=== PATIENT | female | born 1980 | race Asian ===

== ENCOUNTER → 2020-02-12 07:48 | Outpatient (CLI) | payer OTHER, SELFPAY ==
[2020-02-12 08:50] LABS: Add Manual Diff / Slide Review NO; Basophils Absolute Auto 0 /uL (0-100); Basophils Percent Auto 0.9 % (0-2); Eosinophils Absolute Auto 300 /uL (0-450); Eosinophils Percent Auto 5.8 % (2-4); Hemoglobin 14.4 g/dL (12.0-16.0); Lymphocytes Absolute Auto 1200 /uL (1100-4500); Lymphocytes Percent Auto 26.2 % (25-40); Mean Corpuscular HGB Conc 35.2 % (30-36); Mean Corpuscular Hemoglobin 31.9 PG (26-34); Mean Corpuscular Volume 90.6 fL (80-100); Monocytes Absolute Auto 300 /uL (0-900); Monocytes Percent Auto 6.7 % (3-14); Neutrophils Absolute Auto 2700 /uL (1500-7000); Neutrophils Percent Auto 60.4 % (50-75); Platelet Count 238 X10^3/uL (150-400); Red Blood Cell Count 4.53 X10^6/uL (4.0-5.2); White Blood Cell Count 4.4 X10^3/uL (4.5-11.0)
[2020-02-12 08:51] LABS: Appearance Urine UA CLEAR; Bilirubin Urine UA NEGATIVE (NEGATIVE); Color Urine UA YELLOW; Glucose Urine UA NEGATIVE (Negative); Ketones Urine UA NEGATIVE (NEGATIVE); Leukocyte Esterase Urine UA NEGATIVE (NEGATIVE); Nitrite Urine UA NEGATIVE (Negative); Occult Blood Urine UA TRACE-LYSED (Negative); Protein Urine UA NEGATIVE (Negative); Urobilinogen Urine UA 0.2 E.U./dL (0.2)
[2020-02-12 09:31] LABS: Alanine Aminotransferase 16 IU/L (<35); Albumin 4.5 g/dL (3.5-5.0); Albumin Globulin Ratio 1.4 (1.0-2.8); Alkaline Phosphatase 55 U/L (38-126); Aspartate Aminotransferase 23 IU/L (14-36); BUN Creatinine Ratio 17.7 (6-22); Bilirubin Total 2.6 mg/dL (0.2-1.3); Blood Urea Nitrogen 14 mg/dL (7-17); Calcium 8.9 mg/dL (8.4-10.2); Carbon Dioxide 31 mmol/L (22-32); Chloride 102 mmol/L (98-107); Cholesterol 148 mg/dL (140-199); Estimated Glomerular Filt Rate > 60.0 mL/min (>60); Globulin 3.3 g/dL (1.7-4.1); Glucose 106 mg/dL (70-100); HDL Cholesterol 41 mg/dL (40-60); HEMOLYSIS < 15 (0-50); LDL Cholesterol Calculated 92 mg/dL (<100); Sodium 138 mmol/L (137-145); Total Protein 7.8 g/dL (6.3-8.2); Triglycerides 74 mg/dL (35-150)
== END ==
PROVIDERS: PCP Registered Nurse; Referring Provider Registered Nurse; Visit Provider Registered Nurse
DX: Z00.00 Encounter for general adult medical examination without abnormal findings (principal); Z83.42 Family history of familial hypercholesterolemia
CPT/HCPCS: 36415; 80053; 80061; 81003; 85025

== ENCOUNTER → 2021-02-11 09:43 | Outpatient (CLI) | payer OTHER, SELFPAY ==
[2021-02-11 10:56] LABS: Alanine Aminotransferase 27 IU/L (<35); Albumin 4.5 g/dL (3.5-5.0); Albumin Globulin Ratio 1.5 (1.0-2.8); Alkaline Phosphatase 57 U/L (38-126); Aspartate Aminotransferase 25 IU/L (14-36); BUN Creatinine Ratio 17.5 (6-22); Bilirubin Total 1.9 mg/dL (0.2-1.3); Blood Urea Nitrogen 14 mg/dL (7-17); Calcium 9.3 mg/dL (8.4-10.2); Carbon Dioxide 29 mmol/L (22-32); Chloride 101 mmol/L (98-107); Estimated Glomerular Filt Rate > 60.0 mL/min (>60); Glucose 108 mg/dL (70-100); HEMOLYSIS < 15 (0-50); Sodium 139 mmol/L (137-145); Total Protein 7.5 g/dL (6.3-8.2)
== END ==
PROVIDERS: PCP Registered Nurse; Referring Provider Family Medicine; Visit Provider Family Medicine
DX: R17 Unspecified jaundice (principal)
CPT/HCPCS: 36415; 80053

== ENCOUNTER → 2024-02-22 11:50 | Outpatient (CLI) | payer OTHER, SELFPAY ==
--- NOTE | 2024-02-22 11:53 | DI.RAD.S_ITS ---
PROCEDURE: XR WRIST LT 2V INDICATIONS: Fracture of unspecified carpal bone, left wrist, initial enc TECHNIQUE: 2 views of the wrist were acquired. COMPARISON: None. FINDINGS: Bones: No acute fractures or dislocations. No suspicious bony lesions. Small ossification adjacent to the tip of the styloid process likely related to remote prior injury. Soft tissues: No suspicious soft tissue calcifications. IMPRESSION: No acute osseous abnormality. If there is continued clinical concern or persistent symptoms, repeat radiographs or cross-sectional imaging (e.g. CT, MRI) may be helpful for further evaluation. Approved by: Keith Kang M.D. on 02/22/2024 at 13:00
== END ==
PROVIDERS: Referring Provider Chiropractor; Visit Provider Chiropractor
DX: S62.102A Fracture of unspecified carpal bone, left wrist, initial encounter for closed fracture (principal); X58.XXXA Exposure to other specified factors, initial encounter
CPT/HCPCS: 73100

== ENCOUNTER → 2024-06-23 06:56 | Outpatient (CLI) | payer OTHER, SELFPAY ==
--- NOTE | 2024-06-23 07:10 | DI.ECHO.S_ITS ---
[facility]+ [facility] : : [address] : : [place] : : [id number] : : Phone: [phone] Echocardiogram Report + + :Name: RICCARDO DE LOS SANTOS Study Date: 06/23/2024 Height: 62 in : :[facility] ReadingLocation: Weight: 140 lb : : Gender: Female BSA: 1.6 m2 : :: 1980 Age: 43 yrs BP: 113/73 mmHg: :Reason For Study: HEART CONDITION : : Performed By: Dulce Beaver : + + Interpretation Summary Normal both left and right ventricle size and function. The ejection fraction is estimated to be 55-60%. No valvular abnormality. Procedure: A two-dimensional transthoracic echocardiogram with color flow and Doppler was performed. The study quality was technically adequate. There is no prior echocardiogram noted for this patient. The patient was in sinus bradycardia with heart rates between 57-63 bpm during the exam. Left Ventricle: The left ventricle is normal in size and wall thickness. The ejection fraction is estimated to be 55-60%. Left ventricular wall motion is normal. Right Ventricle: The right ventricle is normal in size and function. Atria: The left atrial size is normal. Right atrial size is normal. There is no Doppler evidence for an interatrial shunt. Mitral Valve: The mitral valve leaflets appear to open well. There is trace mitral regurgitation. Aortic Valve: The aortic valve is trileaflet. The aortic valve opens well. There is no aortic valve stenosis. No aortic regurgitation is present. Tricuspid Valve: The tricuspid valve leaflets are thin and pliable. There is trace tricuspid regurgitation. Pulmonary artery pressures cannot be estimated because of the lack of a measurable TR jet velocity. Pulmonic Valve: The pulmonic valve leaflets are thin and pliable; valve motion is normal. There is trace pulmonic regurgitation. Great Vessels: The aortic root is normal size. The ascending aorta could not be visualized. The IVC is of normal diameter and collapses greater than 50% with a sniff. This suggests a low right atrial pressure of 3 mm Hg. Pericardium/ Pleura There is no pericardial effusion. There is no pleural effusion. MMode/2D Measurements & Calculations LVIDd: 4.7 cm LVOT diam: 2.0 cm LVIDs: 3.4 cm Ao root diam: 2.7 cm FS: 27.3 % Ao Arch Diam (Prox Trans): 2.5 cm EPSS: 0.73 cm IVSd: 0.69 cm LVPWd: 0.59 cm LV whitman. diameter/BSA (cm/m^2): 2.9 LV sys. diameter/BSA (cm/m^2): 2.1 LA A2 area: 16.0 cm2 RA long axis: 3.9 cm LA A4 area: 11.2 cm2 RA area: 10.5 cm2 LA length (vol): 3.8 cm RA vol: 23.6 ml LA vol: 40.2 ml RA : 14.4 ml/m2 LA vol index: 24.5 ml/m2 IVC diam: 1.4 cm RVD1 (basal): 2.9 cm TAPSE: 1.8 cm Doppler Measurements & Calculations Ao V2 max: 135.2 cm/sec LVOT Max Dewey: 105.8 cm/sec Ao V2 mean: 89.6 cm/sec LV V1 max P.5 mmHg Ao max P.3 mmHg LV V1 VTI: 21.6 cm Ao mean P.7 mmHg DARIN(I,D): 2.4 cm2 Ao V2 VTI: 27.6 cm DARIN(V,D): 2.4 cm2 sev ratio: 0.78 DARIN indexed to BSA (cm^2/m^2): 1.5 MV E max dewey: 95.3 cm/sec PA V2 max: 92.0 cm/sec MV A max dewey: 46.0 cm/sec PA V2 mean: 66.1 cm/sec MV E/A: 2.1 PA mean P.9 mmHg Med Peak E' Dewey: 11.9 cm/sec PA pr(Accel): 26.3 mmHg E/E' med: 8.0 Lat Peak E' Dewey: 14.5 cm/sec E/E' lat: 6.6 E/e' average: 7.3 MV dec time: 0.22 sec SV(LVOT): 65.8 ml Electronically signed by: Loni Forman on Reading Physician:06/23/2024 09:25 AM
== END ==
PROVIDERS: Referring Provider Physician Assistant; Visit Provider Physician Assistant
DX: I51.9 Heart disease, unspecified (principal); R00.1 Bradycardia, unspecified
CPT/HCPCS: 93306